=== PATIENT | male | born 1965 | race Caucasian/White ===

== ENCOUNTER 2020-09-18 03:30 | Emergency (ER) | payer BC ==
[~2020-09-18] VITALS: Ht 180.3 cm; Wt 97.5 kg
[2020-09-18] MEDS ORDERED: MYCOPHENOLATE500 MG (03:48)
[2020-09-18] MEDS ORDERED: PROGRAF1 MG (03:48)
[2020-09-18] MEDS ORDERED: XARELTO20 MG (03:49)
== END 2020-09-18 06:43 ==
LOC: ER 03:30
DX: R06.02 Shortness of breath (principal); Z20.822 Contact with and (suspected) exposure to COVID-19